=== PATIENT | male | born 1955 | race Caucasian/White ===

== ENCOUNTER → 2016-10-20 | Day surgery (SDC) | payer OTHER ==
[~2016-10-20] MED LIST: AMLODIPINE BESYL5 MG; AMOXICILLIN875 MG PO; ASPIRIN PO; CLARITIN10 M3 PO; FINASTERIDE5 M1 PO; LORTAB 7.5-5001 TAB PO; NEPHROCAPS CAPSU1 MG; PRILOSEC PO; PROTONIX PO
--- NOTE | ~2016-10-20 | OR ---
Unit #: [id number] #: [id number] Patient: ROSARIO BROWN [id number] [address] [place], [place] [address] [id number] MR#: [id number] NAME: ROSARIO BROWN. ROOM: Date of Procedure: 10/20/2016 Admission Date: 10/20/2016 Surgeon: Kelvin Whipple M.D. : 1955 Attending Physician: Kelvin Whipple M.D. Primary Care Physician: Oscar Sutherland M.D. OPERATIVE REPORT PRIMARY CARE PHYSICIAN Oscar Sutherland M.D. PREOPERATIVE DIAGNOSES The patient has had intermittent history of dysphagia. In addition, he has family history of colon cancer in his father and he needs a screening colonoscopy. PROCEDURES PERFORMED Upper gastrointestinal endoscopy and dilation using a 60-[place] Espinosa dilator, as well as colonoscopy up to cecum and terminal ileum with excellent preparation and good visualization. POSTOPERATIVE DIAGNOSES For upper endoscopy: The patient had distal esophageal Schatzki ring; although, the latter was felt to be nonobstructing. It was dilated using a 60-[place] Espinosa dilator. Rest of the examination up to third part of duodenum was normal. For colonoscopy: Completely normal examination up to cecum and terminal ileum. The quality of the prep was excellent. No polyps, diverticula, or hemorrhoids were noted. RECOMMENDATIONS The patient will be followed up in the office in 3 to 4 months' time. In addition, he needs a surveillance colonoscopy in 5 years. SEDATION USED MAC. DESCRIPTION OF PROCEDURE Following detailed explanation of the potential risks and complications of an upper endoscopy and a colonoscopy, namely perforation, bleeding, and complication related to sedation, the patient was brought to GI lab and laid in the left lateral decubitus position. Lubricated tip of the Olympus video upper endoscope was passed through the bite block into the proximal esophagus under direct vision. The entire esophageal mucosa was examined and the patient was noted to have distal esophageal mucosal ring, which was felt to be wide open. The scope was then advanced into the gastric cavity and the latter was insufflated. Mucosa of the fundus, body, and antrum was examined and appeared unremarkable. Pylorus was intubated with visualization of the normal duodenal bulb and second and Unit #: [id number] #: [id number] Patient: ROSARIO BROWN third part of the duodenum. Upon withdrawal and retroflexion, incisura, cardia, and greater curve was examined and no additional findings were noted. The scope was then withdrawn in the distal esophagus. The entire esophageal mucosa was examined all the way up to pharynx. No additional findings were noted. A 60-[place] Espinosa dilator was introduced through the oral cavity and advanced into the esophagus. Relook endoscopy showed fracture of the distal esophageal ring. They were thoroughly washed with water and good hemostasis was achieved. The scope was then withdrawn and the patient returned to the recovery area. The examination table was then turned by 180 degrees and the patient positioned for a colonoscopy. A digital rectal examination was performed, which was normal. Lubricated tip of the Olympus video colonoscope was inserted through the anus and advanced under direct vision. The scope was advanced past rectosigmoid into descending colon. No diverticula were noticed in this area. The scope tip was then navigated all the way up to cecum with visualization of the ileocecal valve and the appendiceal orifice. Preparation was excellent with good visualization and photodocumentation was obtained. Last several inches of terminal ileum were also visualized after intubation of the ileocecal valve and appeared normal. Successive segments of the colonic mucosa were examined upon withdrawal and appeared unremarkable. There being no polyps, mass lesions, AVMs, or diverticula. The patient did not have any hemorrhoids at the anal verge. The scope was then withdrawn and the patient returned to the recovery area. He tolerated the procedure without any postprocedure complications. Dictated by... Troy Linda TD: 10/21/2016 01:56 JOB #: [id number] OPERATIVE REPORT Page 1 of 1 X Kevlin Whipple MD X PROCEDURE OPERATIVE NOTE
== END | disposition home or self-care (01) ==
LOC: COPS 08:02
DX: Z12.11 Encounter for screening for malignant neoplasm of colon (principal); K22.2 Esophageal obstruction; R13.10 Dysphagia, unspecified; K21.9 Gastro-esophageal reflux disease without esophagitis; I10 Essential (primary) hypertension; Z80.0 Family history of malignant neoplasm of digestive organs; Z88.1 Allergy status to other antibiotic agents; Z79.899 Other long term (current) drug therapy
CPT/HCPCS: J2250